=== PATIENT | male | born 1955 | race Caucasian/White ===

== ENCOUNTER 2017-10-17 09:52 | Day surgery (SDC) | payer BC ==
[~2017-10-17 09:52] MED LIST: Acetaminophen/HYDROcodone 325-10 MG Tab PO PRN; Clindamycin Phosphate in D5W 900 MG in Premix Bag 1 BAG IV SCH; Dexamethasone 4 MG/ML 5 ML MDV ONE; Ketorolac 10 MG Tab PO PRN; Lactated Ringers 1,000 ML IV SCH; Lidocaine 2% 5 ML SDV ONE; Ondansetron 4 MG/2 ML SDV ONE; Propofol 200 MG/20 ML SDV ONE; Rocuronium 10 MG/ML 10 ML Syringe ONE; Succinylcholine/Normal Saline 200 MG/10 ML Syringe ONE; diphenhydrAMINE 50 MG/ML SDV ONE; fentaNYL 250 MCG/5 ML SDV ONE
[2017-10-17] MEDS ORDERED: fentaNYL 100 MCG/2 ML SDV IVPUSH PRN (10:51)
[2017-10-17] MEDS ORDERED: Midazolam 1 MG/ML 2 ML SDV IVPUSH ONE (10:52)
--- NOTE | 2017-10-17 10:58 | PCM.PREANE ---
Preanesthetic Assessment - Anesthesia/Transfusion/Family Hx Anesthesia History: Prior Anesthesia Without Reaction Family History of Anesthesia Reaction: No Transfusion History: No Prior Transfusion(s) - Review of Systems General: No Symptoms Pulmonary: No Symptoms Cardiovascular: No Symptoms Gastrointestinal: No Symptoms Neurological: No Symptoms Other: Reports: None - Physical Assessment O2 Sat by Pulse Oximetry: 94 Respiratory Rate: 16 Vital Signs: Last Vital Signs Temp 36.8 C 10/17/17 10:15 Pulse 82 10/17/17 10:15 Resp 16 10/17/17 10:15 BP 126/85 10/17/17 10:15 Pulse Ox 94 L 10/17/17 10:15 Height: 1.7 m Weight: 110.223 kg ASA Class: 2 Mental Status: Alert & Oriented x3 Airway Class: Mallampati = 1 Dentition: Reports: Normal Dentition ROM/Head Extension: Full Lungs: Clear to Auscultation, Normal Respiratory Effort Cardiovascular: Regular Rate, Regular Rhythm - Allergies Allergies/Adverse Reactions: Allergies Allergy/AdvReac Type Severity Reaction Status Date / Time Penicillins Allergy Hives Verified 10/15/17 10:51 - Anesthesia Plan Pre-Op Medication Ordered: Other (versed and fent for block) - Acknowledgements Anesthesia Type Planned: General Anesthesia Pt an Appropriate Candidate for the Planned Anesthesia: Yes Alternatives and Risks of Anesthesia Discussed w Pt/Guardian: Yes Pt/Guardian Understands and Agrees with Anesthesia Plan: Yes Additional Comments: isb for post op pain management. PreAnesthesia Questionnaire HEENT History: Reports: Allergic Rhinitis Other HEENT History: takes inhaler for allergies Cardiovascular History: Reports: High Cholesterol, Hypertension Gastrointestinal History: Reports: GERD, Hiatal Hernia Genitourinary History: Musculoskeletal History: Reports: Fracture Other Musculoskeletal History: hx of fx foot Neurological History: Reports: Migraines Endocrine/Metabolic History: Reports: Obesity/BMI 30+ Dermatologic History: Reports: Other (See Below) Other Dermatologic History: rosacea (takes antibiotics for this) - Past Surgical History Head Surgeries/Procedures: Reports: None HEENT Surgical History: Reports: LASIK, Oral Surgery Other HEENT Surgeries/Procedures: has dental implants Musculoskeletal Surgical History: Reports: Arthroscopic Knee - SUBSTANCE USE Smoking Status *Q: Current Every Day Smoker Tobacco Use Within Last Twelve Months: Smokeless Tobacco Recreational Drug Use History: No - HOME MEDS Home Medications: Home Meds Aspirin [Adult Low Dose Aspirin EC] 81 mg PO DAILY 10/15/17 [History] Celecoxib 200 mg PO DAILY 10/15/17 [History] Fish Oil/[place]-3 Fatty Acids [Fish Oil 1,000 MG] 1,000 mg PO DAILY 10/15/17 [ History] Fluticasone/Salmeterol [Advair 250-50 Diskus] 1 dose INH BID PRN 10/15/17 [ History] Hydrochlorothiazide 25 mg PO DAILY 10/15/17 [History] Lansoprazole [Prevacid] 30 mg PO DAILY 10/15/17 [History] Minocycline HCl 50 mg PO DAILY 10/15/17 [History] Montelukast Sodium 10 mg PO DAILY 10/15/17 [History] Tadalafil [Cialis] 20 mg PO ASDIRECTED PRN 10/15/17 [History] Tamsulosin HCl 0.4 mg PO DAILY 10/15/17 [History] Tolterodine Tartrate 2 mg PO BID 10/15/17 [History] amLODIPine Besylate/Benazepril [Amlodipine-Benazepril 5-10 MG] 1 cap PO DAILY [History] atorvaSTATin Calcium [Atorvastatin Calcium] 10 mg PO DAILY 10/15/17 [History] - CURRENT (IN HOUSE) MEDS Current Meds: Current Medications Hydrocodone Bitart/Acetaminophen ([place] 325-10 Mg) 1 - 2 tab PO Q4H PRN PRN Reason: Pain Lactated Ringer's (Ringers, Lactated) 1,000 mls @ 100 mls/hr IV ASDIRECTED BOBBY Last Admin: 10/17/17 10:22 Dose: 100 mls/hr Clindamycin Phosphate 900 mg/ (Premix) 50 mls @ 100 mls/hr IV ONCALL BOBBY Discontinued Medications Dexamethasone (Dexamethasone) Confirm Administered Dose 20 mg .ROUTE .STK-MED ONE Stop: 10/17/17 08:38 Diphenhydramine HCl (Benadryl) Confirm Administered Dose 50 mg .ROUTE .STK-MED ONE Stop: 10/17/17 08:38 Fentanyl (Sublimaze) Confirm Administered Dose 250 mcg .ROUTE .STK-MED ONE Stop: 10/17/17 08:38 Ketorolac Tromethamine (Toradol) 10 mg PO Q6H PRN PRN Reason: Pain Stop: 10/22/17 08:01 Lidocaine (Xylocaine-Mpf 2%) Confirm Administered Dose 5 ml .ROUTE .STK-MED ONE Stop: 10/17/17 08:38 Ondansetron HCl (Zofran) Confirm Administered Dose 4 mg .ROUTE .STK-MED ONE Stop: 10/17/17 08:38 Propofol (Diprivan 20 Ml) Confirm Administered Dose 200 mg .ROUTE .STK-MED ONE Stop: 10/17/17 08:38 Rocuronium [place] (Zemuron) Confirm Administered Dose 100 mg .ROUTE .STK-MED ONE Stop: 10/17/17 08:38 Succinylcholine Chloride (Succinylcholine In Ns Pf) Confirm Administered Dose 200 mg .ROUTE .STK-MED ONE Stop: 10/17/17 08:38
[2017-10-17] MEDS ORDERED: Dexamethasone 4 MG/ML 5 ML MDV ONE (11:02)
[2017-10-17] MEDS ORDERED: Bupivacaine 0.5% 30 ML SDV ONE (11:03)
--- NOTE | 2017-10-17 11:22 | PCM.SN ---
- Free Text/Narrative Note: procedure note.. interscalene block , consent obtained, howard prepped, 1% lido as local. versed 2 mg + fent 50 mcg for sedation. nerve stimulator used. dosed in 5 ml increments: 28 ml of 0.5% bupiv and 8 mg dexamethasone. No comps
--- NOTE | 2017-10-17 11:46 | PCM.OPNOTE ---
- General Post-Op/Procedure Note Date of Surgery/Procedure: 10/17/17 Operative Procedure(s): R shoulder scope with SAD, biceps tenotomy and RTCR Post-Op Diagnosis: R shoulder impingement, biceps tendonopathy, degenerative ant labral tear, RTC tear Anesthesia Technique: General ET Tube, Regional Block Primary Surgeon: Valery Alexis Proof Operator: Annia Clayton in mLs: 10 Condition: Good Free Text/Narrative:: #[id number]
[2017-10-17] MEDS ORDERED: fentaNYL 250 MCG/5 ML SDV ONE (12:39)
[2017-10-17] MEDS ORDERED: Labetalol 100 MG/20 ML MDV ONE (13:09)
[2017-10-17] MEDS ORDERED: Albuterol/Ipratropium 3.0-0.5 MG/3 ML Neb Soln NEB ONE (13:56)
[2017-10-17] MEDS ORDERED: Albuterol 0.083% 2.5 MG/3 ML Neb Soln ONE (13:57)
[2017-10-17] MEDS ORDERED: traMADol 50 MG Tab PO PRN (14:05)
--- NOTE | 2017-10-17 15:20 | PCM48HPAN ---
Post Anesthesia Note - EVALUATION WITHIN 48HRS OF ANESTHETIC Vital Signs in Normal Range: Yes Patient Participated in Evaluation: Yes Respiratory Function Stable: Yes Airway Patent: Yes Cardiovascular Function Stable: Yes Hydration Status Stable: Yes Pain Control Satisfactory: Yes Nausea and Vomiting Control Satisfactory: Yes Mental Status Recovered: Yes
--- NOTE | 2017-10-17 19:44 | OR ---
SURGEON: Valery Alexis MD DATE OF PROCEDURE: 10/17/2017 PREOPERATIVE DIAGNOSES: 1. Right shoulder impingement syndrome. 2. Right shoulder biceps tendinopathy. 3. Right shoulder rotator cuff tear. POSTOPERATIVE DIAGNOSES: 1. Right shoulder impingement syndrome. 2. Right shoulder biceps tendinopathy. 3. Right shoulder rotator cuff tear. 4. 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 PROCEDURES: Right shoulder arthroscopy with subacromial decompression, extensive synovectomy including debridement of degenerative anterior and posterior labral tear and biceps tenotomy and arthroscopic rotator cuff repair. TRANSFER CONTROLLER: Annia Clayton RN. ANESTHESIA: General with interscalene block. ESTIMATED BLOOD LOSS: 10 mL. TOURNIQUET TIME: Zero minutes. COMPLICATIONS: None. DVT PROPHYLAXIS: PAS boots to bilateral lower extremities. IMPLANTS USED: Two Arthrex 4.5 mm corkscrew anchors ([employer]). BRIEF HISTORY: Oscar is a 61-year-old male, who has had complaint of progressive right shoulder pain. He had tried conservative treatment, including injections which did not give him lasting relief. Due to his lack of response to conservative treatment, I did recommend surgical intervention. The risks and goals of procedure were discussed with the patient and were documented preoperatively. He agreed to proceed. DESCRIPTION OF PROCEDURE: The patient was properly identified and brought to the operating room. He was transferred from the OR cart and placed on the operating room table in a supine position. General anesthesia was administered. An interscalene block had been administered preoperatively. After adequate anesthesia was obtained, the patient was placed in a beach-chair type position. Care was taken to pad all bony prominences. His head was secured. The right upper extremity was then prepped in standard fashion using ChloraPrep solution. It was then sterilely draped. A time-out was performed to ensure correct site and procedure. Preoperative antibiotics were given. The surgical site had been marked preoperatively. Bony landmarks were identified with a marking pen. Approximately 30 mL of fluid was introduced into the glenohumeral joint. A posterior portal was then established. Blunt trocar and cannula were introduced into the glenohumeral joint. Camera, inflow, and outflow were assembled. The biceps showed significant degeneration upon entry to the joint. The rotator interval showed mild synovitis. An anterior portal was established. The subscapularis was visualized and probed. It was found to be intact. No loose bodies were noted in the subscapular recess. The biceps was then visualized. It had extensive degenerative fraying. I elected to proceed with the biceps tenotomy. Electrocautery was used to amputate the biceps at its insertion onto the labrum. The biceps retracted easily into the biceps tendon sheath. Degenerative fraying was noted along the anterior and posterior labrum. This was also debrided with electrocautery. Both the glenoid and humeral head were visualized. Mild grade 1 to grade 2 chondromalacia was noted diffusely. I then entered the axillary pouch. Mild synovitis was noted. No loose bodies were identified. I then brought the arm into an abducted and externally rotated position. The bare area was noted posteriorly. As I progressed forward, there was found to be a full-thickness tear of the supraspinatus tendon extending into the infraspinatus tendon. The arm was then brought back into a neutral position. Instruments were moved into the subacromial space. Again camera, inflow, and outflow were assembled. A lateral portal was established. Using a combination of the shaver and electrocautery, an extensive bursectomy was performed. This allowed good visualization of the rotator cuff. The undersurface of the acromion was also cleared of soft tissue. The Os acromiale which was noted on his preoperative MRI was also identified. There did not appear to be significant bony impingement and I elected to not perform an acromioplasty due to the position of the Os acromiale. It should be noted that he was completely asymptomatic from the Os prior to surgery. The rotator cuff was then inspected. A crescentic full-thickness tear was noted of the anterior portion of the supraspinatus. A cuff grasper was used to pull the cuff back to its position on the footprint and it came easily with minimal tension. The shaver was then used to roughen the bony surface just lateral to the articular surface. Two 4.5 mm corkscrew anchors were then placed into the footprint. Sutures were passed into the cuff tissue. The tissue was then tied in a posterior-to- anterior fashion. This provided good compression of the cuff to the lateral footprint. At the completion, the cuff was probed. I felt that further compression with a lateral row was indicated. A 4.75 mm SwiveLock anchor was then placed along the lateral aspect of the humeral head. SwiveLock did incorporate sutures from the medial row. This was malleted and screwed into place. The repair was again probed. There was a nearly watertight closure of the cuff. The cuff reapproximated to its footprint nicely. Suture ends were then clipped. Instruments were then removed from the shoulder. The portal sites were closed with 3-0 nylon. It should be noted that a total of 5 portals were made with 2 utilizing a PassPort cannula for assistance with suture management. Xeroform gauze was then placed over the wound and a bulky dressing was applied. He was placed into a well-padded shoulder immobilizer. He was awakened from his anesthetic and transferred back to the operating room cart. He was brought to recovery room in stable condition. All needle and sponge counts were correct. BHARGAV LEDBETTER /[id number] MTDD
== END 2017-10-17 15:49 | disposition home or self-care (01) ==
LOC: MW.SDS 09:52
PROVIDERS: ATTEND Orthopaedic Surgery
DX: M75.121 Complete rotator cuff tear or rupture of right shoulder, not specified as traumatic (principal); S43.431A Superior glenoid labrum lesion of right shoulder, initial encounter; M75.41 Impingement syndrome of right shoulder; M65.811 Other synovitis and tenosynovitis, right shoulder; M94.211 Chondromalacia, right shoulder; E78.00 Pure hypercholesterolemia, unspecified; I10 Essential (primary) hypertension; K21.9 Gastro-esophageal reflux disease without esophagitis; K44.9 Diaphragmatic hernia without obstruction or gangrene; G43.909 Migraine, unspecified, not intractable, without status migrainosus; F17.220 Nicotine dependence, chewing tobacco, uncomplicated; J30.9 Allergic rhinitis, unspecified; L71.9 Rosacea, unspecified; E66.9 Obesity, unspecified; Z68.38 Body mass index [BMI] 38.0-38.9, adult; Z79.82 Long term (current) use of aspirin; Z79.2 Long term (current) use of antibiotics; Z79.899 Other long term (current) drug therapy; Z88.0 Allergy status to penicillin; Z98.890 Other specified postprocedural states
CPT/HCPCS: 29823; 29827; 94640; A9270; C1713; J1100; J1200; J2250; J2405; J3010; J7120; 01610; 88304; J2704

== ENCOUNTER 2024-01-11 06:37 | Day surgery (SDC) | payer MEDICARE, OTHER ==
[2024-01-11] MEDS: Lactated Ringers 1,000 ML IV SCH (07:03)
[2024-01-11] MEDS ORDERED: propofoL 50 ML ONE (07:28)
[2024-01-11] MEDS ORDERED: Lactated Ringers 1,000 ML IV SCH (08:45)
== END 2024-01-11 09:10 | disposition home or self-care (01) ==
LOC: MW.SDS 06:37
PROVIDERS: ATTEND Surgery
DX: Z12.11 Encounter for screening for malignant neoplasm of colon (principal); D12.3 Benign neoplasm of transverse colon; K63.5 Polyp of colon; K55.20 Angiodysplasia of colon without hemorrhage; I10 Essential (primary) hypertension; E78.5 Hyperlipidemia, unspecified; K21.9 Gastro-esophageal reflux disease without esophagitis; J45.909 Unspecified asthma, uncomplicated; F17.210 Nicotine dependence, cigarettes, uncomplicated; E66.9 Obesity, unspecified; Z68.36 Body mass index [BMI] 36.0-36.9, adult; Z86.010 Personal history of colon polyps; Z79.899 Other long term (current) drug therapy; Z88.0 Allergy status to penicillin
CPT/HCPCS: 45380; J2704; J7120; 00811; 88305